=== PATIENT | male | born 1955 | race Two or more races ===

== ENCOUNTER → 2017-07-02 | Emergency (ER) | payer OTHER ==
[~2017-07-02] VITALS: Ht 170.2 cm; Wt 99.8 kg
[~2017-07-02] MED LIST: KETO10TA2 PO; TAMS0.4C PO
== END | disposition home or self-care (01) ==
LOC: ER 17:23
DX: M75.51 Bursitis of right shoulder (principal); M54.2 Cervicalgia; M62.838 Other muscle spasm

== ENCOUNTER → 2017-09-03 | Emergency (ER) | payer OTHER ==
[~2017-09-03] VITALS: Ht 170.2 cm; Wt 95.3 kg
== END | disposition home or self-care (01) ==
LOC: ER 12:43
DX: R00.2 Palpitations (principal); R06.02 Shortness of breath

== ENCOUNTER 2019-09-08 11:44 | Outpatient (CLI) | payer OTHER | END 2019-09-08 11:53 | disposition home or self-care (01) | LOC: LAB 11:44 | DX: Z20.828 Contact with and (suspected) exposure to other viral communicable diseases (principal) ==

== ENCOUNTER 2021-01-06 12:45 | Outpatient (CLI) | payer OTHER | END 2021-01-06 12:46 | disposition home or self-care (01) | LOC: NUCLEAR 12:45 | PROVIDERS: ATTEND Specialist | DX: M81.0 Age-related osteoporosis without current pathological fracture (principal) ==

== ENCOUNTER → 2022-09-20 | Outpatient (CLI) | payer OTHER | END | disposition home or self-care (01) | LOC: MRI 09:52 | PROVIDERS: ATTEND Specialist | DX: M48.061 Spinal stenosis, lumbar region without neurogenic claudication (principal); M54.16 Radiculopathy, lumbar region | CPT/HCPCS: 72148 ==